=== PATIENT | male | born 1980 | race Caucasian/White ===

== ENCOUNTER 2022-03-20 17:18 | Emergency (ER) | payer BC ==
[~2022-03-20] VITALS: Ht 175.3 cm; Wt 86.2 kg
[2022-03-20] MEDS ORDERED: ACETAMINOPHEN 160 MG/5 ML UDC PO ONE (17:45)
[2022-03-20] MEDS ORDERED: IV NORMAL SALINE 1000 ML BAG IV ONE (17:45)
--- NOTE | 2022-03-20 17:45 | NUR ---
PATIENT WAS MSE BY DR GARZA IN ROOM 05B.
[2022-03-20] MEDS ORDERED: ACETAMINOPHEN ES 500 MG TABLET ONE (17:54)
[2022-03-20] MEDS ORDERED: ALPR0.5T PO (18:04)
[2022-03-20] MEDS ORDERED: CITA10TA17 PO (18:04)
[2022-03-20] MEDS ORDERED: FAMO-132 PO (18:04)
[2022-03-20] MEDS ORDERED: OLME20TA13 PO (18:04)
[2022-03-20 18:07] LABS: *BILIRUBIN,URIN NEGATIVE (NEGATIVE); *BLOOD, URINE NEGATIVE (NEGATIVE); *CLARITY,URINE CLEAR (CLEAR); *COLOR,URINE YELLOW (YELLOW); *KETONES,URINE NEGATIVE (NEGATIVE); LEUKOCYTE ESTERASE ,URINE NEGATIVE (NEGATIVE); NITRITE, URINE NEGATIVE (NEGATIVE); PH,URINE 6.5 (5.0-8.0); UGLUCOSE NEGATIVE (NEGATIVE)
[2022-03-20 18:08] LABS: HEMATOCRIT 42.3 % (36.7-47.1); MEAN CORPUSCULAR HEMOGLOBIN 33.3 uug (23.8-33.4); MEAN CORPUSCULAR VOLUME 98.1 fL (73.0-96.2); PLATELET COUNT (AUTO) 270 K/uL (152-348)
[2022-03-20 18:13] LABS: CARBON DIOXIDE 28 mmol/L (21-32); CHLORIDE 97 mmol/L (98-107); CREATININE 0.9 mg/dL (0.6-1.3); GLUCOSE 98 mg/dL (74-106); UREA NITROGEN, BLOOD 9 mg/dL (7-18)
[2022-03-20 18:22] LABS: ALANINE AMINOTRANSFERASE 130 U/L (16-63); ALKALINE PHOSPHATASE 64 U/L (50-136); ASPARTATE AMINOTRANSFERASE 58 U/L (15-37); BILIRUBIN,DIRECT 0.3 mg/dL (0.0-0.2); LIPASE 157 U/L (73-393); TOTAL PROTEIN, SERUM 8.7 g/dL (6.4-8.2)
[2022-03-20] MEDS ORDERED: AMOX-430 PO (18:26)
[2022-03-20] MEDS ORDERED: AMOXICILLIN-CLAVUL 875-125MG TABLET PO ONE (18:30)
[2022-03-20] MEDS ORDERED: AMOXICILLIN-CLAVUL 875-125MG TABLET ONE (18:39)
--- NOTE | 2022-03-20 19:03 | NUR ---
REPORT GIVEN TO AILYN CASTAÑEDA RN
--- NOTE | 2022-03-20 19:20 | NUR ---
IV removed. Catheter intact and site benign. Pressure and 4x4 gauze applied to site. No bleeding noted.
--- NOTE | 2022-03-20 19:26 | NUR ---
Patient discharged to home in stable condition. Written and verbal after care instructions given. Patient verbalizes understanding of instructions. Stressed follow up or return to ER for worsening s/s.
[2022-03-20 19:27] VITALS: BP 132/99
== END 2022-03-20 19:28 | disposition home or self-care (01) ==
LOC: ER 17:18
DX: K57.32 Diverticulitis of large intestine without perforation or abscess without bleeding (principal); I10 Essential (primary) hypertension; M54.9 Dorsalgia, unspecified
CPT/HCPCS: 99285; 74176; 96360; 87426; 80076; 80048; 81003; 83690; 85025; 87400; 84484; 36415; 93005; J7040; A4663; A9150